=== PATIENT | female | born 1935 ===

== ENCOUNTER 2019-06-02 08:45 | Emergency (ER) | payer MEDICAID ==
[~2019-06-02] VITALS: Ht 157.5 cm; Wt 48.6 kg
[2019-06-02] MEDS ORDERED: LITH300C3 PO (08:54)
[2019-06-02] MEDS ORDERED: LEVO25TA9 PO (08:54)
[2019-06-02] MEDS ORDERED: QUET25TA PO (08:54)
[2019-06-02 09:15] VITALS: BP 140/75
== END 2019-06-02 10:18 | disposition home or self-care (01) ==
LOC: EMS 08:49
DX: K05.10 Chronic gingivitis, plaque induced (principal); M26.621 Arthralgia of right temporomandibular joint; F31.9 Bipolar disorder, unspecified; E03.9 Hypothyroidism, unspecified